=== PATIENT | female | born 1970 | race Caucasian/White ===

== ENCOUNTER 2019-01-24 11:45 | Emergency (ER) | payer OTHER, SELFPAY ==
[2019-01-24 11:49] VITALS: BP 118/78; PULSE 72; RESP 18; TEMP 36.4; O2SAT 98
--- NOTE | 2019-01-24 11:59 | DI.US.S_ITS ---
PROCEDURE: US PERIPH VENOUS LOW EXTREM RT INDICATIONS: stage IV CA, flew, now right lower leg pain. Please go to US TECHNIQUE: Real-time imaging, as well as color and pulse Doppler interrogation, were performed of the lower extremity deep veins from the inguinal ligament to the popliteal fossa. COMPARISON: None. FINDINGS: The common femoral, femoral and popliteal veins are normally compressible, and free of intraluminal thrombus. Color and pulse Doppler demonstrate normal phasic intraluminal flow. There is normal augmentation response to distal compression maneuver. IMPRESSION: Negative for deep venous thrombosis. Dictated by: Zheng Dumont M.D. on 01/24/2019 at 11:35 Approved by: Zheng Dumont M.D. on 01/24/2019 at 11:36
--- NOTE | 2019-01-24 12:23 | ED.EXTPRO ---
HPI - Extremity Problem <Oxana Pa PA-C - Last Filed: 01/24/19 20:50> General Chief complaint: Extremity Problem,Nontraumatic Stated complaint: rule out blood clot, right leg Time Seen by Provider: 01/24/19 11:57 Source: patient Mode of arrival: ambulatory Limitations: no limitations History of Present Illness HPI Narrative: This 48-year-old female comes to ED secondary to concern for DVT. She has no history of blood clots. She has advanced inflammatory breast cancer with metastases, flew here last week from [place] and pain in her right leg started just after she arrived. She has noted some swelling as well. She denies any chest pain, dyspnea, cough or hemoptysis. She states that she gets injections of a new chemotherapy agent monthly which does cause extremity and joint pain and did have had right before she left, however she is a she states that the pain is more typically localized in the joints, mostly in her knee. This hurts more around her knee, less so in the calf and other areas. Pain is somewhat worse with walking, better with rest. She states that she has had some swelling more in that leg in the past and was evaluated for DVT then as well, that was negative and she was put on a diuretic which helped. Related Data Allergies Allergy/AdvReac Type Severity Reaction Status Date / Time No Known Drug Allergies Allergy Verified 01/24/19 11:53 Review of Systems <Oxana Pa PA-C - Last Filed: 01/24/19 20:50> Review of Systems ROS Unobtainable: All systems reviewed & are unremarkable except as noted in HPI and below PFSH <Oxana Pa PA-C - Last Filed: 01/24/19 20:50> Medical History (Updated 01/24/19 @ 20:46 by Oxana Pa PA-C) Bone metastases (Chronic) Inflammatory breast cancer (Chronic) Surgical History (Updated 01/24/19 @ 20:46 by Oxana Pa PA-C) H/O mastectomy (Resolved) Status post bilateral oophorectomy (Resolved) Social History Smoking Status: Never smoker Social History Smoking Status: Never smoker Exam <Oxana Pa PA-C - Last Filed: 01/24/19 20:50> Narrative Exam Narrative: GENERAL APPEARANCE: Patient sitting comfortably, in no distress. Appears well NECK/THYROID: Neck supple LUNGS: Clear to auscultation bilaterally. HEART: Regular rate and rhythm without murmur, normal S1, S2, no S3 or S4. EXTREMITIES: No cyanosis, trace edema on the right, none on the left. Scattered varicosities, a few more on the right. PEDAL PULSES INTACT MUSCULOSKELETAL: Mild tenderness over the right calf and lateral horn, more tender around the patellar tendon attachments of the knee and over bilateral knee joints. No knee effusion. Full range of motion NEUROLOGIC: Alert and oriented, normal speech, gait and coordination. Initial Vital Signs Initial Vital Signs: Vital Signs Temperature 97.5 F L 01/24/19 11:49 Pulse Rate 72 01/24/19 11:49 Respiratory Rate 18 01/24/19 11:49 Blood Pressure 118/78 01/24/19 11:49 Pulse Oximetry 98 01/24/19 11:49 <Yeimi Dawson MD - Last Filed: 01/26/19 08:57> Initial Vital Signs Initial Vital Signs: Vital Signs Temperature 97.5 F L 01/24/19 11:49 Pulse Rate 72 01/24/19 11:49 Respiratory Rate 18 01/24/19 11:49 Blood Pressure 118/78 01/24/19 11:49 Pulse Oximetry 98 01/24/19 11:49 Course <Oxana Pa PA-C - Last Filed: 01/24/19 20:50> Orders Ordered: ED Orders 01/24/19 11:59 US periph venous low extrem rt Stat Vital Signs - 8 hr 01/24/19 13:00 Pulse Rate 65 Respiratory Rate 12 Blood Pressure [Right Arm] 94/62 Pulse Oximetry 96 <Yeimi Dawson MD - Last Filed: 01/26/19 08:57> Orders Ordered: ED Orders 01/24/19 11:59 US periph venous low extrem rt Stat Vital Signs - 8 hr 01/24/19 13:00 Pulse Rate 65 Respiratory Rate 12 Blood Pressure [Right Arm] 94/62 Pulse Oximetry 96 MDM - Extremity (Nontraumatic) <Oxana Pa PA-C - Last Filed: 01/24/19 20:50> Imaging Data Venous US: Radiologist's impression: [address] [address] Ultrasound Report Signed Patient: Sole Schmid JMR#: [id number] : 1970Acct:[id number] Age/Sex: 48 / FDate of Service: 01/24/19 Loc: ED Accession Number: [id number] Procedure: US periph venous low extrem rt Ordering Provider: Oxana Pa P.A-C PROCEDURE: US PERIP VENOUS LOW EXTREM RT INDICATIONS: stage IV CA, flew, now right lower leg pain. Please go to US TECHNIQUE: Real-time imaging, as well as color and pulse Doppler interrogation, were performed of the lower extremity deep veins from the inguinal ligament to the popliteal fossa. COMPARISON: None. FINDINGS: The common femoral, femoral and popliteal veins are normally compressible, and free of intraluminal thrombus. Color and pulse Doppler demonstrate normal phasic intraluminal flow. There is normal augmentation response to distal compression maneuver. IMPRESSION: Negative for deep venous thrombosis. Dictated by: Zheng Dumont M.D. on 01/24/2019 at 11:35 Approved by: Zheng Dumont M.D. on 01/24/2019 at 11:36 Discharge Plan Departure Patient Disposition: Home Clinical Impression: Lower extremity edema, Venous insufficiency Discharge Date/Time: 01/24/19 13:06 Interventions: ED Discharge Assessment Last Done: 01/24/19 13:05 Instructions: Chronic Venous Insufficiency Activity Restrictions/Additional Instructions: As we talked about, you should return to the ED if you have acutely worsening symptoms during your stay, i.e. worsening pain or swelling, new chest pain, shortness of breath, coughing up blood or feeling faint. Your ultrasound did not show any sign of a blood clot today, and from what you have described to me I think your pain and swelling are likely due to a combination of some venous insufficiency (you have some varicose veins and have had swelling in that leg before, so was likely exacerbated by flying here) and also the shot that you had the day before since that tends to cause joint and leg pain. Please try some knee-high compression stockings (you can get light ones from the drugstore), gentle walking and activity as you tolerate are fine. Please elevate your legs above your heart as much as possible to help with swelling. Please talk with your oncologist prior to your next injection since it is not clear whether these pains are more severe/different than usual. They seemed to be more in the tendon attachments around the knees. Best wishes for a wonderful visit here and with your treatment! Referrals: Leti Rivas [Other]
[2019-01-24 13:00] VITALS: BP 94/62; PULSE 65; RESP 12; O2SAT 96
== END 2019-01-24 13:06 | disposition home or self-care (01) ==
PROVIDERS: Emergency Provider Internal Medicine
DX: R60.9 Edema, unspecified (principal); I87.2 Venous insufficiency (chronic) (peripheral)
CPT/HCPCS: 93971; 99282; 99283